=== PATIENT | female | born 1970 | race Caucasian/White ===

== ENCOUNTER 2020-04-16 11:33 | Outpatient (REF) | payer OTHER, SELFPAY ==
[2020-04-16 14:03] LABS: Free T4 (Free Thyroxine) 1.31 ng/dL (0.71-1.85); Thyroid Stimulating Hormone 0.14 uIU/mL (0.32-4.0)
== END 2020-04-16 11:34 | disposition home or self-care (01) ==
LOC: HO.MANLR 11:33
PROVIDERS: PCP Internal Medicine; Visit Provider Internal Medicine
DX: E03.9 Hypothyroidism, unspecified (principal)
CPT/HCPCS: 36415; 84439; 84443

== ENCOUNTER 2020-10-22 11:11 | Outpatient (REF) | payer OTHER, SELFPAY ==
[2020-10-22 13:37] LABS: Free T4 (Free Thyroxine) 1.52 ng/dL (0.71-1.85); Thyroid Stimulating Hormone 0.02 uIU/mL (0.32-4.0)
== END 2020-10-22 11:12 | disposition home or self-care (01) ==
LOC: HO.MANLDS 11:11
PROVIDERS: PCP Internal Medicine; Visit Provider Internal Medicine
DX: E03.9 Hypothyroidism, unspecified (principal)
CPT/HCPCS: 36415; 84439; 84443

== ENCOUNTER 2021-05-02 10:38 | Outpatient (REF) | payer OTHER, SELFPAY ==
[2021-05-02 14:09] LABS: Free T4 (Free Thyroxine) 1.38 ng/dL (0.71-1.85); Thyroid Stimulating Hormone 0.03 uIU/mL (0.32-4.0)
== END 2021-05-02 10:39 | disposition home or self-care (01) ==
LOC: HO.MANLDS 10:38
PROVIDERS: PCP Internal Medicine; Visit Provider Internal Medicine
DX: E03.9 Hypothyroidism, unspecified (principal)
CPT/HCPCS: 36415; 84439; 84443

== ENCOUNTER 2021-10-28 16:03 | Outpatient (REF) | payer OTHER, SELFPAY ==
[2021-10-28 18:58] LABS: Thyroid Stimulating Hormone 0.01 uIU/mL (0.32-4.0)
== END 2021-10-28 16:04 | disposition home or self-care (01) ==
LOC: HO.MANLDS 16:03
PROVIDERS: Visit Provider Internal Medicine
DX: E03.9 Hypothyroidism, unspecified (principal)
CPT/HCPCS: 36415; 84439; 84443

== ENCOUNTER 2022-04-25 09:54 | Outpatient (REF) | payer OTHER, SELFPAY ==
[2022-04-25 12:38] LABS: Free T4 (Free Thyroxine) 1.29 ng/dL (0.71-1.85); Thyroid Stimulating Hormone 0.11 uIU/mL (0.32-4.0)
== END 2022-04-25 09:55 | disposition home or self-care (01) ==
LOC: HO.MANLDS 09:54
PROVIDERS: Visit Provider Internal Medicine
DX: E03.9 Hypothyroidism, unspecified (principal)
CPT/HCPCS: 36415; 84439; 84443

== ENCOUNTER 2022-04-26 11:04 | Outpatient (REF) | payer OTHER, SELFPAY ==
[2022-04-26 12:47] LABS: MANUAL DIFF FLAG NO
[2022-04-26 12:48] LABS: Basophils Percent Auto 0.8 % (0-2); Eosinophils Absolute Auto 0.2 X10*3/uL (0.0-0.4); Eosinophils Percent Auto 4.4 % (0-4); Hematocrit 43.4 % (37.0-47.0); Hemoglobin 14.7 g/dl (12.0-16.0); Imm Gran Abs Auto 0.01 X10*3/uL (0.00-0.03); Imm Gran Pct Auto 0.2 % (0.0-0.4); Lymphocytes Absolute Auto 1.6 X10*3/uL (1.2-4.9); Lymphocytes Percent Auto 32.9 % (20-40); Mean Corpuscular HGB Conc 33.9 g/dl (31.0-35.0); Mean Corpuscular Volume 85.6 fL (80.0-98.0); Mean Platelet Volume 12.1 fL (9.4-12.3); Monocytes Absolute Auto 0.4 X10*3/uL (0.1-1.2); Monocytes Percent Auto 8.5 % (2-11); Neutrophils Absolute Auto 2.6 x10*3/uL (2.0-8.3); Neutrophils Percent Auto 53.2 % (45-73); Platelet Count 123 X10*3/uL (160-400); Red Blood Count 5.07 X10*6/uL (4.20-5.50); Red Cell Distribution Width 12.5 % (11.0-16.0)
[2022-04-26 13:47] LABS: Alanine Aminotransferase 31 U/L (0-31); Alkaline Phosphatase 69 U/L (39-117); Anion Gap 15 (12-20); Aspartate Amino Transferase 22 U/L (5-31); Bilirubin Total 1.3 mg/dL (0.0-1.0); Blood Urea Nitrogen 10 mg/dL (9-16); Carbon Dioxide 24 mmol/L (22-29); Chloride 108 mmol/L (96-108); Estimated Glomerular Filt Rate > 60; Glucose Random 96 mg/dL (60-115); Potassium 4.2 mmol/L (3.3-5.1); Sodium 143 mmol/L (135-145); Total Protein 6.7 g/dL (6.5-8.0)
[2022-04-28 01:40] LABS: Triiodothyronine T3 Free 3.8 pg/mL (2.3-4.2)
== END 2022-04-26 11:05 | disposition home or self-care (01) ==
LOC: HO.MANLDS 11:04
PROVIDERS: Visit Provider Internal Medicine
DX: E03.9 Hypothyroidism, unspecified (principal)
CPT/HCPCS: 36415; 80053; 84481; 85025

== ENCOUNTER 2022-10-23 10:42 | Outpatient (REF) | payer OTHER, SELFPAY ==
[2022-10-23 15:13] LABS: Thyroid Stimulating Hormone 0.06 uIU/mL (0.32-4.0)
== END 2022-10-23 10:43 | disposition home or self-care (01) ==
LOC: HO.MANLDS 10:42
PROVIDERS: Visit Provider Internal Medicine
DX: E03.9 Hypothyroidism, unspecified (principal)
CPT/HCPCS: 36415; 84443

== ENCOUNTER 2022-12-01 10:38 | Outpatient (REF) | payer OTHER, SELFPAY ==
[2022-12-01 13:55] LABS: TSH reflex Free T4 0.06 uIU/mL (0.32-4.0)
== END 2022-12-01 10:39 | disposition home or self-care (01) ==
LOC: HO.MANLDS 10:38
PROVIDERS: Visit Provider Internal Medicine
DX: E03.9 Hypothyroidism, unspecified (principal)
CPT/HCPCS: 36415; 84439; 84443

== ENCOUNTER 2023-04-20 11:10 | Outpatient (REF) | payer OTHER, SELFPAY ==
[2023-04-20 14:23] LABS: Free T4 (Free Thyroxine) 1.35 ng/dL (0.71-1.85); Thyroid Stimulating Hormone 0.25 uIU/mL (0.32-4.0)
== END 2023-04-20 11:11 | disposition home or self-care (01) ==
LOC: HO.MANLDS 11:10
PROVIDERS: Visit Provider Internal Medicine
DX: E03.9 Hypothyroidism, unspecified (principal)
CPT/HCPCS: 36415; 84439; 84443

== ENCOUNTER 2024-04-21 10:29 | Outpatient (REF) | payer OTHER, SELFPAY ==
[2024-04-21 13:17] LABS: Basophils Percent Auto 0.9 % (0-2); Eosinophils Absolute Auto 0.1 X10*3/uL (0.0-0.4); Eosinophils Percent Auto 3.1 % (0-4); Hematocrit 39.9 % (37.0-47.0); Hemoglobin 13.1 g/dl (12.0-16.0); Imm Gran Abs Auto 0.01 X10*3/uL (0.00-0.03); Imm Gran Pct Auto 0.2 % (0.0-0.4); Lymphocytes Absolute Auto 1.5 X10*3/uL (1.2-4.9); Lymphocytes Percent Auto 34.5 % (20-40); MANUAL DIFF FLAG SCAN; Mean Corpuscular HGB Conc 32.8 g/dl (31.0-35.0); Mean Corpuscular Hemoglobin 28.1 pg (27.0-33.0); Mean Corpuscular Volume 85.6 fL (80.0-98.0); Monocytes Absolute Auto 0.4 X10*3/uL (0.1-1.2); Monocytes Percent Auto 8.9 % (2-11); Neutrophils Absolute Auto 2.2 x10*3/uL (2.0-8.3); Neutrophils Percent Auto 52.4 % (45-73); PLT CLUMP 1; Red Blood Count 4.66 X10*6/uL (4.20-5.50); Red Cell Distribution Width 12.8 % (11.0-16.0); SCAN SMEAR FLAG 1
[2024-04-21 13:46] LABS: Alanine Aminotransferase 37 U/L (0-31); Albumin Level 3.8 g/dL (3.5-5.0); Alkaline Phosphatase 72 U/L (39-117); Anion Gap 11 (12-20); Aspartate Amino Transferase 29 U/L (5-31); Bilirubin Total 1.4 mg/dL (0.0-1.0); Blood Urea Nitrogen 8 mg/dL (9-16); Calcium 8.8 mg/dL (8.4-10.2); Carbon Dioxide 25 mmol/L (22-29); Chloride 110 mmol/L (96-108); Estimated Glomerular Filt Rate > 60; Glucose Random 92 mg/dL (60-115); Sodium 142 mmol/L (135-145); Total Protein 7.1 g/dL (6.5-8.0)
[2024-04-21 14:02] LABS: Mean Platelet Volume 12.5 fL (9.4-12.3); Platelet Count 116 X10*3/uL (160-400); White Blood Count 4.3 X10*3/uL (4.8-10.8)
[2024-04-21 14:03] LABS: SLIDE REVIEW VERIFIED
[2024-04-21 14:09] LABS: Thyroid Stimulating Hormone 0.37 uIU/mL (0.32-4.0)
[2024-04-25 08:03] LABS: VITAMIN D (1,25 OH) D3 43 pg/mL; Vit D (1,25-Dihydroxy) Total 43 pg/mL (18-72); Vitamin D (1,25 OH) D2 <8 pg/mL
== END 2024-04-21 10:30 | disposition home or self-care (01) ==
LOC: HO.MANLDS 10:29
PROVIDERS: Visit Provider Internal Medicine
DX: E03.9 Hypothyroidism, unspecified (principal)
CPT/HCPCS: 36415; 80053; 82652; 84443; 85025

== ENCOUNTER 2024-12-05 12:09 | Outpatient (REF) | payer OTHER, SELFPAY ==
--- OUTSIDE RECORDS SUMMARY | 2024-12-05 13:42 | XMS_ITS | Encounter Summary ---
Author Organization [facility] Address [address] [facility] [address] [place] [address] Phone Care Team Providers Care Business Account Manager Name Role Phone William Kwan DO Primary Care Provider [phone] Encounter Details Date Type Department Care Team (Late st Contact Info) Description 10/03/2019 Procedure [facility], Ct Scan - [address] [address] Social History Tobacco Use Types Packs/Day Years Used Date Smoking Tobacco: Never Smokeless Tobacco: Never Comments Unknown Sex and Gender Information Value Date Recorded Sex Assigned at Female 10/16/2022 1:39 AM EDT Legal Sex Female 9:36 PM EDT Gender Identity Female 10/16/2022 1:39 AM EDT Sexual Orientation Not on file documented as of this encounter Plan of Treatment Not on file documented as of this encounter Visit Diagnoses Not on filedocumented in this encounter Care Teams Business Account Manager Relationship Specialty Start Date End Date William Kwan DO [email or web address] PCP - General Internal Medicine 05/09/17 documented as of this encounter Additional Source Comments The information contained in this document represents components of the legal health record. It is not the complete legal health record.[facility]
--- OUTSIDE RECORDS SUMMARY | 2024-12-05 13:42 | XMS_ITS | Encounter Summary ---
Author Organization [facility] Address [address] [address] Phone Care Team Providers Care Commercial Drone Software Developer Name Role Phone William Kwan DO Primary Care Provider [phone] Encounter Details Date Type Department Care Team (Late st Contact Info) Description 05/04/2017 Ancillary Orders [facility] External Provider Virtual Department [address] [place] [address] William Kwan DO [address] [facility] [place] [address] [email or web address] WADE (dyspnea on exertion); Other chest pain Social History Tobacco Use Types Packs/Day Years Used Date Smoking Tobacco: Never Assessed Comments Unknown Sex and Gender Information Value Date Recorded Sex Assigned at Female 10/16/2022 1:39 AM EDT Legal Sex Female 9:36 PM EDT Gender Identity Female 10/16/2022 1:39 AM EDT Sexual Orientation Not on file documented as of this encounter Plan of Treatment Not on file documented as of this encounter Results * Stress Test Exercise (05/24/2017 9:19 AM EDT) Max BP Systolic 140 mmHg [facility] Max BP Diastolic 70 mmHg [facility] Max HR 150 BPM [facility] Resting HR 81 BPM [facility] Resting BP Systolic 115 mmHg [facility] Resting BP Diastolic 60 mmHg [facility] Peak METS 10.1 METS [facility] Peak HR 150 BPM [facility] Anatomical Region Laterality Modality Heart Other 05/24/2017 8:41 AM EDT 05/24/2017 9:19 AM EDT Narrative 05/24/2017 8:39 PM EDT Response to Stress Patient achieved a peak heart rate of 150 bpm, which is% of their maximum predicted heart rate. Exercise Stress Test Report: Reason for termination: fatigue Summary: Resting ECG: SR HR 99 Functional capacity: good Heart rate response to exercise: appropriate Blood pressure response to exercise: normotensive - appropriate response Chest pain: none Arrhythmias: none Conclusion: Patient exercised for 8:06 minutes on a standard Raf protocol achieving 87% MPHR (150 BPM) and 10.10 METS. Test terminated due to fatigue. Summary: 1. EKG: No EKG evidence of ischemia per criteria 2. Symptoms: No exertional chest pain or symptoms concerning for angina. 3. Exercise physiology: Normal heart rate and BP response to exercise. Max HR 150 BPM with normal HR recovery. Max BP 140/70 from baseline BP of 115/60. 02 sat 95-97% and stable throughout the procedure. Good functional capacity for age noted. 4. Arrhythmia: None Conclusion: Normal ETT. No ischemic EKG changes. Vital signs at baseline at time of discharge from the lab. EKG reviewed with Dr. Stewart. Cinthia Reid, PERMASTONE INSTALLER, MPH . us William Kwan DO CV STRESS ORDERABLES Final Resul t documented in this encounter Visit Diagnoses Diagnosis WADE (dyspnea on exertion) Other dyspnea and respiratory abnormality Other chest pain WADE (dyspnea on exertion) Other dyspnea and respiratory abnormality Other chest pain documented in this encounter Care Teams Commercial Drone Software Developer Relationship Specialty Start Date End Date William Kwan DO [email or web address] PCP - General Internal Medicine 05/09/17 documented as of this encounter Additional Source Comments The information contained in this document represents components of the legal health record. It is not the complete legal health record.[facility]
--- OUTSIDE RECORDS SUMMARY | 2024-12-05 13:42 | XMS_ITS | Clinical Summary ---
Author Organization [facility] Address [address] [place] [address] Phone Care Team Providers Care Regional Medical Director Name Role Phone William Kwan Primary Care Provider [phone] Allergies Active Allergy Reactions Criticality Noted Date Comments Animal Dander Other (See Comments) High 09/20/2019 Cat Dander Wheezing 05/02/2005 Dog Dander Wheezing 05/02/2005 Erythromycin Base 09/20/2019 Pollen Extracts 08/18/2010 And other environmental Medications albuterol 90 mcg/actuation inhaler albuterol sulfate HFA 90 mcg/actuation aerosol inhaler Active levothyroxine (SYNTHROID, LEVOTHROID) 125 MCG tablet Synthroid 125 mcg tablet TAKE ONE TABLET BY MOUTH EVERY DAY Active ALBUTEROL INHL Inhale into the lungs. Active betamethasone dipropionate 0.05 % cream APPLY A THIN LAYER TO THE AFFECTED AREA(S) BY TOPICAL ROUTE ONCE DAILY Active carBAMazepine (TEGRETOL) 200 mg tablet Take 1 tablet (200 mg total) by mouth 2 (two) times a day for 14 days. 28 tablet 3 Active Active Problems No known active problems Family History Medical History Relation Comments Breast cancer Mother dx fall and is cancer free as of 03/2021 Relation Status Comments Mother Social History Tobacco Use Types Packs/Day Years Used Date Smoking Tobacco: Never Smokeless Tobacco: Never Tobacco Cessation:Counseling Given: Not Answered Alcohol Use Standard Drinks/Week Comments Yes 1 (1 standard drink = 0.6 oz pur e alcohol) Education Answer Date Recorded Are you interested in more education? Not on aminta e 06/02/2022 Are you concerned about learning? Not on file 06/02/2022 No 06/02/2022 No 06/02/2022 Digital Access Answer Date Recorded No 07/01/2022 No 07/01/2022 Reliable internet access at home? Not on file 07/01/2022 Device with a working camera? Not on file Intimate Partner Violence Answer Date R ecorded Are you denied basic needs s uch as food, clothing, or medical care? No 10/16/2022 In the past 12 months have y ou been in a relationship with a person who hurts, threatens, or tries to control you? No 10/16/2022 Are you denied basic needs s uch as food, clothing, or medical care? No 10/16/2022 In the past 12 months have y ou been in a relationship with a person who hurts, threatens, or tries to control you? No 10/16/2022 Comments No Sex and Gender Information Value Date Recorded Sex Assigned at Female 10/16/2022 1:39 AM EDT Legal Sex Female 9:36 PM EDT Gender Identity Female 10/16/2022 1:39 AM EDT Sexual Orientation Not on file Last Filed Vital Signs Vital Sign Reading Time Taken Comments Blood Pressure 185/96 10/16/2022 1:38 AM EDT Pulse 80 10/16/2022 1:38 AM EDT Temperature 36.8 C (98.2 F) 10/16/2022 1:38 AM EDT Respiratory Rate 18 10/16/2022 1:38 AM EDT Oxygen Saturation 99% 10/16/2022 1:38 AM EDT Inhaled Oxygen Concentration - - Weight 69.9 kg (154 lb) 10/16/2022 1:38 AM EDT Height 160 cm (5' 3 ) 10/16/2022 1:38 AM EDT Body Mass Index 27.28 10/16/2022 1:38 AM EDT Plan of Treatment Health Maintenance Due Date Last Done Comments LIPID PANEL 1968 DEPRESSION SCREENING 1980 HEPATITIS C SCREENING 1986 HIV ONE-TIME SCREENING (18-65 YEARS) 1986 PAP SMEAR 1989 COLOGUARD 2013 COLONOSCOPY 2013 COLORECTAL CANCER SCREENING 2013 FIT TEST 2013 FOBT 2013 SIGMOIDOSCOPY 2013 VIRTUAL COLONOSCOPY 2013 PNEUMOCOCCAL VACCINES (50+ years) (1 of 1 - PCV) 2018 ZOSTER VACCINES (1 of 2) 2018 MAMMOGRAM 12/23/2021 12/24/2019 SCREENING FOR DIABETES 06/30/2023 06/29/2020 INFLUENZA VACCINE (#1) 2024 2, 11/16/2020, 10/21/2019, Additional history exists COVID-19 VACCINE (4 - 2024- season) 2024 02/28/2021, 06/20/2020, 05/30/2020 TSH LEVEL 10/18/2024 10/19/2023 Adult Td,Tdap Booster 10/29/2029 10/30/2019 RSV VACCINE (1 - 1-dose 75+ series) 08/14/2043 SMOKING STATUS SCREENING (Once After 26 Yrs) Completed 10/16/2022 HEPATITIS A VACCINES Aged Out No long er eligible based on patient's age to complete this topic HIB VACCINES Aged Out No longer eligi ble based on patient's age to complete this topic MENINGOCOCCAL VACCINES (ACWY) Aged Out No longer eligible based on patient's age to complete this topic MENINGOCOCCAL VACCINES (B) Aged Out N o longer eligible based on patient's age to complete this topic Medical Devices Not on file Procedures Procedure Name Priority Date/Time Associated Diagnosis Comments TSH WITH REFLEX Routine 10/19/2023 10:43 AM EDT 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 Months or Most Recently Relevant to Health Maintenance Results * TSH with reflex (10/19/2023 10:43 AM EDT) TSH 0.68 0.27 - 4.20 uIU/mL [facility] Blood 10/19/2023 10:4 3 AM EDT 10/19/2023 10:46 AM EDT us William A Bigda DO LAB BLOOD ORDERABLES Final Resul t [address] [address] from Last 3 Months or Most Recently Relevant to Health Maintenance Insurance [facility] CIGNA DENTAL [facility] [place] [facility] Member Subscriber Plan / Payer (Ef fective 2020-Present) Name:Vonnie Stark Relation to Subscriber:Spouse Name:GORDY STARK Date of :1967 (Home) Address: [address] [place] [address] Payer ID:[id number] (NAIC) Type:PPO Address: [address] [id number] [place] [id number] Care Teams Regional Medical Director Relationship Specialty Start Date End Date William Kwan DO [email or web address] PCP - General Internal Medicine 05/09/17 Additional Source Comments The information contained in this document represents components of the legal health record. It is not the complete legal health record.[facility]
--- OUTSIDE RECORDS SUMMARY | 2024-12-05 13:42 | XMS_ITS | Data Portability ---
Author Organization [facility], Telehealth Patient Home Address [address] [place] [address] Assessment Encounter Date Assessment Date Assessment LastModified by Organization Details LastModified Time 04/30/2023 04/30/2023 [id number] [place] [id number] (DOWNSTAIRS MAID) [facility] MODERATE MUST MEET 2 OUT OF 3 ELEMENTS: PROBLEMS, DATA OR RISK ELEMENT 1: PROBLEMS ADDRESSED 1 OR MORE CHRONIC ILLNESS WITH EXACERBATION OR 2 OR MORE STABLE CHRONIC ILLNESSES OR 1 UNDIAGNOSED NEW PROBLEM OR 1 ACUTE ILLNESS W/SYMPTOMS OR 1 ACUTE COMPLICATED INJURY ELEMENT 2: DATA MUST MEET 1 OF 3 CATEGORIES CATEGORY 1: REVIEW OF PRIOR EXTERNAL NOTES, REVIEW OF RESULTS, ORDERING OF EACH TEST, ASSESSMENT REQUIRING INDEPENDENT HISTORIAN OR CATEGORY 2: INDEPENDENT INTERPRETATION OF TESTS BY ANOTHER PHYSICIAN OR SPECIALIST OR CATEGORY 3: DISCUSSION OF MGT OR TEST INTERPRETATION W/EXTERNAL PHYSICIAN OR SPECIALIST ELEMENT 3: RISK RISK OF COMPLICATIONS AND/OR MORBIDITY OR MORTALITY OF PATIENT MANAGEMENT PROVIDER MUST THOROUGHLY DOCUMENT EACH ELEMENT THAT IS COVERED Not available 04/30/2023 10:29:19 10/19/2023 10/19/2023 [id number] [place] [id number] (DOWNSTAIRS MAID) [facility] MODERATE MUST MEET 2 OUT OF 3 ELEMENTS: PROBLEMS, DATA OR RISK ELEMENT 1: PROBLEMS ADDRESSED 1 OR MORE CHRONIC ILLNESS WITH EXACERBATION OR 2 OR MORE STABLE CHRONIC ILLNESSES OR 1 UNDIAGNOSED NEW PROBLEM OR 1 ACUTE ILLNESS W/SYMPTOMS OR 1 ACUTE COMPLICATED INJURY ELEMENT 2: DATA MUST MEET 1 OF 3 CATEGORIES CATEGORY 1: REVIEW OF PRIOR EXTERNAL NOTES, REVIEW OF RESULTS, ORDERING OF EACH TEST, ASSESSMENT REQUIRING INDEPENDENT HISTORIAN OR CATEGORY 2: INDEPENDENT INTERPRETATION OF TESTS BY ANOTHER PHYSICIAN OR SPECIALIST OR CATEGORY 3: DISCUSSION OF MGT OR TEST INTERPRETATION W/EXTERNAL PHYSICIAN OR SPECIALIST ELEMENT 3: RISK RISK OF COMPLICATIONS AND/OR MORBIDITY OR MORTALITY OF PATIENT MANAGEMENT PROVIDER MUST THOROUGHLY DOCUMENT EACH ELEMENT THAT IS COVERED Not available 10/19/2023 09:55:44 04/21/2024 04/21/2024 [id number] [place] [id number] (DOWNSTAIRS MAID) [facility] MODERATE MUST MEET 2 OUT OF 3 ELEMENTS: PROBLEMS, DATA OR RISK ELEMENT 1: PROBLEMS ADDRESSED 1 OR MORE CHRONIC ILLNESS WITH EXACERBATION OR 2 OR MORE STABLE CHRONIC ILLNESSES OR 1 UNDIAGNOSED NEW PROBLEM OR 1 ACUTE ILLNESS W/SYMPTOMS OR 1 ACUTE COMPLICATED INJURY ELEMENT 2: DATA MUST MEET 1 OF 3 CATEGORIES CATEGORY 1: REVIEW OF PRIOR EXTERNAL NOTES, REVIEW OF RESULTS, ORDERING OF EACH TEST, ASSESSMENT REQUIRING INDEPENDENT HISTORIAN OR CATEGORY 2: INDEPENDENT INTERPRETATION OF TESTS BY ANOTHER PHYSICIAN OR SPECIALIST OR CATEGORY 3: DISCUSSION OF MGT OR TEST INTERPRETATION W/EXTERNAL PHYSICIAN OR SPECIALIST ELEMENT 3: RISK RISK OF COMPLICATIONS AND/OR MORBIDITY OR MORTALITY OF PATIENT MANAGEMENT PROVIDER MUST THOROUGHLY DOCUMENT EACH ELEMENT THAT IS COVERED Not available 04/21/2024 10:16:37 11/03/2024 11/03/2024 [id number] [place] [id number] (DOWNSTAIRS MAID) [facility] MODERATE MUST MEET 2 OUT OF 3 ELEMENTS: PROBLEMS, DATA OR RISK ELEMENT 1: PROBLEMS ADDRESSED 1 OR MORE CHRONIC ILLNESS WITH EXACERBATION OR 2 OR MORE STABLE CHRONIC ILLNESSES OR 1 UNDIAGNOSED NEW PROBLEM OR 1 ACUTE ILLNESS W/SYMPTOMS OR 1 ACUTE COMPLICATED INJURY ELEMENT 2: DATA MUST MEET 1 OF 3 CATEGORIES CATEGORY 1: REVIEW OF PRIOR EXTERNAL NOTES, REVIEW OF RESULTS, ORDERING OF EACH TEST, ASSESSMENT REQUIRING INDEPENDENT HISTORIAN OR CATEGORY 2: INDEPENDENT INTERPRETATION OF TESTS BY ANOTHER PHYSICIAN OR SPECIALIST OR CATEGORY 3: DISCUSSION OF MGT OR TEST INTERPRETATION W/EXTERNAL PHYSICIAN OR SPECIALIST ELEMENT 3: RISK RISK OF COMPLICATIONS AND/OR MORBIDITY OR MORTALITY OF PATIENT MANAGEMENT PROVIDER MUST THOROUGHLY DOCUMENT EACH ELEMENT THAT IS COVERED Not available 11/03/2024 10:15:49 Plan of Treatment Reminders Order Date Submit Date Provider Last Modified By Organization Details Last Modified Time Details Appointments FOLLOW UP 15 2025 10:00A M DR FOSTER Not available Not available Not available Lab TSH + free T4, serum 2024 025 [facility], [address] [place] [address], [id number], 11/03/2024 10:31:14 CMP, serum or plasma 2024 025 [facility], [address] [place] [address], [address], 11/03/2024 10:31:14 TSH, serum or plasma 2024 025 [facility], [address] [place] [address], [address], 04/22/2024 12:33:09 CMP, serum or plasma 2024 025 [facility], [address] [place] [address], [address], 04/22/2024 12:33:08 CBC 2024 025 [facility], [address] [place] [address], [address], 04/22/2024 12:33:09 vitamin D, 25-hydrox y, total, serum 2024 025 [facility], [address] [place] [address], [address], 04/25/2024 12:19:27 TSH + free T4, serum 2023 024 [facility], [place], [address], 10/19/2023 19:13:55 Referral None recorded. Procedures None recorded. Surgeries None recorded. Imaging XR, hip + pelvis, unilatera l, 2 or 3 view 2022 023 [facility], [address], [place], [address], 12/18/2022 08:37:45 Medication Orders clotrimaz ole-betam ethasone 1 %-0.05 % topical cream 2023 024 [facility], [address] [place], [address], 10/19/2023 10:01:57 trazodone 150 mg tablet 2023 024 [facility], [address] [place], [address], 04/30/2023 10:30:24 trazodone 50 mg tablet 2022 023 [facility], [address] [place], [address], 12/01/2022 15:51:38 Patient TargetsNo targets recorded. Patient Instructions Encounter Date Encounter Id Patient Instructions Last Modified By Organization Details Last Modified Time 12/01/2022 [id number] pulse oximetry* Not available 12/01/2022 15:51:38 insomnia: care instructions Not available 12/01/2022 15:51:35 04/30/2023 [id number] insomnia: care instructions Not available 04/30/2023 10:30:21 complete PFT w/ post bronchodilator spirometry* - pt with probable long covid hrubner Not available 05/07/2023 08:31:03 10/19/2023 [id number] learning about asthma Not available 10/19/2023 10:01:55 athlete's foot: care instructions Not available 10/19/2023 10:01:55 hypothyroidism: care instructions Not available 10/19/2023 10:01:55 04/21/2024 [id number] sleep apnea: car e instructions Not available 04/21/2024 10:22:42 pulse oximetry* BESS[facility] Not available 04/21/2024 10:24:19 hypothyroidism: care instructions Not available 04/21/2024 10:22:42 11/03/2024 [id number] pulse oximetry* Not available 11/03/2024 10:23:23 hypothyroidism: care instructions Not available 11/03/2024 10:23:23 Reason for Referral None Reported. Results Created Date Observation Date Name Description Value Unit Range Abnormal Flag Note LastModifiedBy Organization Detail LastModifiedTime 12/02/1912/01/2022 pulse oxime try* Result 96% Not Available [facility] [address], [place], [address], 11/29/2022 15:09:39 04/22/19 25 04/21/2024 pulse oxime try* Result 97% Not Available [facility] [address], [place], [address], 04/18/2024 13:42:56 11/04/19 25 11/03/2024 pulse oxime try* Result 97 Not Available [facility] [address], [place], [address], 10/15/2024 14:29:12 01/19/20 23 01/16/2023 XR, hip + pelvi s, unila teral , 2 or 3 view No observ ation record ed. [email or web address] [address], [address], 02/02/2023 13:52:50 01/23/20 23 01/22/2023 MAMMO , scree mildred, digit al, bilat eral No observ ation record ed. [email or web address] Not Available 2022 14:08:11 01/24/20 23 01/22/2023 MAMMO , scree mildred, digit al, bilat eral No observ ation record ed. [facility] ([facility]) [address] [place], [address], 01/23/2023 08:34:13 03/19/19 24 03/19/2023 XR, chest , 2 view No observ ation record ed. [email or web address] [address], [address], 03/19/2023 16:39:48 02/07/19 25 01/28/2024 home sleep study No observ ation record ed. [place] [id number] [place], [address], 02/11/2024 08:42:58 Result Notes None recorded. Problems Name Problem SNOMED Code Status Onset Date Resolution Date Notes Provider Name and Address Organization Details Recorded Time Asthma 608749534 Active 2017 William Richardson Thanharmond, DO [address] [place] [address], [address], [facility] 5 10:20:19 Allergic rhinitis caused by pollen 60539141 Active 2017 Needs airline note for severe animal allergy Georgia vicente [facility] 5 13:42:44 Goiter 1403186 Active 2017 Georgia vicente [facility] 5 13:42:28 Hypothyr oidism 81707460 Active 2017 William Richardson Aquiles, DO [address] [place] [address], [address], 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 Georgia vicente [facility] 5 13:42:44 Allergic conjunct ivitis of bilatera l eyes 5820137872 77462 Active 2022 Georgia vicente [facility] 5 13:42:28 Pain of left hip joint 8599332403 Active 2022 Georgia vicente [facility] 5 13:42:28 Dyspnea 255848057 Active 2023 Georgia vicente [facility] 5 13:42:44 Acute exacerba tion of chronic obstruct mark pulmonar y disease 024631473 Completed 202311/03/2024 William Foster, [address] [place], [address], [facility] 5 10:17:14 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 Please review these documents and add these problems to the patient's chart manually as needed. Problem Notes None recorded. Medical Equipment None Reported. Allergies Allergen ID Allergen Name Allergen Category Reaction Reaction Severity Criticality Documentation Date Start Date Code Code System Note Provider Name and Address Organization Details Recorded Time 2326 animal dander environme nt other severe Not available 10/30/2017 Jaz Estevez [facility] 8 08:17:52 98 erythromy flor medicatio n Not available Not available Not available 04/06/2017 4053 RxNorm GI upset Negar Igel [facility] 8 10:24:09 Medications Name Sig Start Date Stop Date Status Note LastModified by Organization Details LastModified Time Prescriptio n - Prior Authorizati on Request 10/24 completed Not Available Not Available Not Available prednisone 10 mg tablet 40 mg x 2 days30 mg x 2 days20 mg x 2 days10 mg x 2 days 04/29 completed Not Available Not Available Not Available trazodone 50 mg tablet TAKE ONE TABLET BY MOUTH EVERY DAY active Not Available Not Available No t Available azithromyci n 250 mg tablet 04/29 completed Not Available Not Available Not Available hydrocodone 5 mg-acetamin ophen 325 mg tablet TAKE 1 TABLET BY MOUTH EVERY 6 HOURS FOR 7 DAYS 05/03 completed Not Available Not Available Not Available carbamazepi ne ER 100 mg tablet,exte nded release,12 hr 10/30 completed Not Available Not Available Not Available Synthroid 125 mcg tablet TAKE ONE TABLET BY MOUTH EVERY DAY 2024 active Not Available Not Available Not Avai lable ciprofloxac in 250 mg tablet 09/30 completed Not Available Not Available Not Available liothyronin e 5 mcg tablet TAKE ONE TABLET BY MOUTH EVERY DAY 04/26 completed Not Available Not Available Not Available triamcinolo ne acetonide 0.1 % topical cream active Not Available Not Available Not Available amoxicillin 500 mg tablet 04/29 completed Not Available Not Available Not Available carbamazepi ne 200 mg tablet Take 1 tablet every 12 hours by oral route for 14 days. 10/23 completed Not Available Not Available Not Available trazodone 150 mg tablet TAKE ONE TABLET BY MOUTH EVERY DAY AT BEDTIME 2024 active Not Available Not Available Not Avai lable clotrimazol e-betametha sone 1 %-0.05 % topical cream APPLY TO THE AFFECTED AND SURROUNDI NG AREAS OF SKIN BY TOPICAL ROUTE 2 TIMES PER DAY IN THE MORNING AND EVENING FOR 2 WEEKS active Not Available Not Available No t Available carbamazepi ne 100 mg chewable tablet 10/30 completed Not Available Not Available Not Available betamethaso ne dipropionat e 0.05 % topical cream APPLY A THIN LAYER TO THE AFFECTED AREA(S) BY TOPICAL ROUTE ONCE DAILY active Not Available Not Available No t Available Synthroid 112 mcg tablet 10/30 completed Not Available Not Available Not Available methylpredn isolone 4 mg tablets in a dose pack 10/30 completed Not Available Not Available Not Available albuterol sulfate HFA 90 mcg/actuati on aerosol inhaler Inhale 2 puffs every 4 hours by inhalatio n route for 30 days. active Not Available Not Available No t Available fluticasone propionate 50 mcg/actuati on nasal spray,suspe nsion 10/30 completed Not Available Not Available Not Available amoxicillin 875 mg-potassiu m clavulanate 125 mg tablet 04/29 completed Not Available Not Available Not Available amoxicillin 500 mg-potassiu m clavulanate 125 mg tablet 10/30 completed Not Available Not Available Not Available oxycodone 5 mg tablet TAKE 1 TABLET BY MOUTH EVERY 4 HOURS NEEDED FOR PAIN 10/23 completed Not Available Not Available Not Available Synthroid 10/24 completed Not Available Not Available Not Available budesonide- formoterol HFA 160 mcg-4.5 mcg/actuati on aerosol inhaler active Not Available Not Available Not Available budesonide- formoterol HFA 80 mcg-4.5 mcg/actuati on aerosol inhaler Inhale 2 puffs twice a day by inhalatio n route as directed for 30 days. 11/03 completed Not Available Not Available Not Available Anoro Ellipta 62.5 mcg-25 mcg/actuati on powder for inhalation 11/03 completed Not Available Not Available Not Available Spiriva Respimat 1.25 mcg/actuati on solution for inhalation active Not Available Not Available N ot Available Vitals Date Recorded Body height Body mass index (BMI) Body weight Heart rate Oxygen saturation Oxygen saturation in Arterial blood by Pulse oximetry Systolic And Diastolic Provider Name and Address Organization Details Last Updated DateTime 5 161.93 cm 30.7 kg/m2 01087.9 3 g 66 /min 97 % 97 % 122/82 mm[Hg] [facility] Cee [facility] 5 10:02:51 Date Recorded Body height Body mass index (BMI) Body weight Heart rate Oxygen saturation Oxygen saturation in Arterial blood by Pulse oximetry Systolic And Diastolic Provider Name and Address Organization Details Last Updated DateTime 4 161.93 cm 30.4 kg/m2 95161.1 8 g 98 /min 99 % 99 % 132/82 mm[Hg] [facility] Cee [facility] 4 10:07:01 Date Recorded Body height Body mass index (BMI) Body weight Heart rate Oxygen saturation Oxygen saturation in Arterial blood by Pulse oximetry Systolic And Diastolic Provider Name and Address Organization Details Last Updated DateTime 4 161.93 cm 29.2 kg/m2 60016.1 1 g 90 /min 98 % 98 % 108/64 mm[Hg] Lindseymargarita Machadomond [facility] 4 09:52:26 Date Recorded Body height Body mass index (BMI) Body weight Oxygen saturation Oxygen saturation in Arterial blood by Pulse oximetry Heart rate Systolic And Diastolic Provider Name and Address Organization Details Last Updated DateTime 5 161.93 cm 30.7 kg/m2 18066 g 97 % 97 % 66 /min 108/72 mm[Hg] Alice Radford [facility] 5 10:04:42 Date Recorded Body height Body mass index (BMI) Body weight Heart rate Oxygen saturation Oxygen saturation in Arterial blood by Pulse oximetry Systolic And Diastolic Provider Name and Address Organization Details Last Updated DateTime 3 161.93 cm 30.3 kg/m2 89646.6 6 g 86 /min 96 % 96 % 120/68 mm[Hg] Lindseymargarita Machadomond [facility] 3 15:24:06 Social History Question Answer Notes LastModified by [employer] Details LastModified Time Tobacco Smoking Status Never Smoker Not Available [facility] 12/09/2019 03:36:24 What Was The Date Of Your Most Recent Tobacco Screening? 11/03/2024 [email or web address] Information not available 11/03/2024 Sex: Unknown Functional Status Question Answer Note LastModified by [employer] Details LastModified Time Do you use any illicit or recreational drugs? No [email or web address] Information not available 12/01/2022 Do you or have you ever used any other forms of tobacco or nicotine? No Information not available 04/26/2022 Mental Status None recorded. Family History Nothing Reported. Medical History No medical history recorded. Gynecological HistoryNo gynecological history recorded. Obstetrics History GPAL:G 0 P 0 0 0 0 Immunizations Vaccine Type Date Status Note Provider Nam e and Address Organization Details Recorded Time COVID-19, mRNA, LNP-S, PF, 30 mcg/0.3 mL dose 1 completed Not Available [facility] 10/16/2022 08:49:45 COVID-19, mRNA, LNP-S, PF, 30 mcg/0.3 mL dose 1 completed Not Available [facility] 10/16/2022 08:49:45 influenza, unspecified formulation 2 completed Not Available [facility] 10/16/2022 08:49:45 Influenza, split virus, quadrivalent, preservative 9 completed Not Available [facility] 10/16/2022 08:49:45 Tdap 0 completed Not Available [facility] 10/16/2022 08:49:45 Past Encounters Encounter ID Performer Location Encounter Start Date Encounter Closed Date Diagnosis/Indication Diagnosis SNOMED-CT Code Diagnosis ICD10 Code Diagnosis IMO Codes Diagnosis Note [id number] William Foster [facility] [address] [address] 10/30/2017 09:29:35 10/30/2017 10:42:59 Hypothyroidism 98959456 E03.9 will get lab work today tsh t4 Asthma 778388517 J45.90 9 stable this year did well no major prob Pain in thumb 390166349 M79.645 will let me know if this discomfort worsens and i will then have her get xrays and see sSpath [id number] William Foster [facility] [address] [address] 03/18/2018 10:24:27 03/18/2018 11:07:02 Hypothyroidism 53514895 E03.9 will get lab work today tsh t4 Insomnia 579529534 G47.0 0 discussed at length and i agree she needs to sleep a certain amount of time nightly Asthma 911020279 J45.90 9 stable this year did well no major prob [id number] William Foster [facility] [address] [facility] [address] [address] 09/25/2018 08:58:29 09/25/2018 11:47:32 Asthma 526172402 J45.909 stable this year did well no major prob Hypothyroidism 04649059 E03.9 lab done was ok will get lab work next vist tsh t4 Insomnia 247851839 G47.0 0 discussed at length and i agree she needs to sleep a certain amount of time nightly Dysplastic nevus of skin 126888946 D22.9 will refer to derm needs removal [id number] William Foster [facility] [address] [facility] [address] [facility] [place] [address] 03/28/2019 14:08:42 03/28/2019 16:35:41 Hypothyroidism 68981850 E03.9 TSH was low at 0.2 has historical ly been low in the past Asthma 505828955 J45.90 9 stable this year did well no major problem only uses the albuterol rescue inhaler ~once a year Insomnia 728852062 G47.0 0 stable, not having any issues Adult heal examination 898976025 Z00.00 hasn't had cmp or cbc done for two years not interested in having a traditiona l colonoscop y Localized visual field defect 942730673 H53.459 [id number] William Foster [facility] [address] [facility] [address] [employer] [facility] [place] [address] 10/01/2019 09:31:21 10/01/2019 10:06:42 Asthma 991312550 J45.909 stable this year did well no major problem only uses the albuterol rescue inhaler ~once a year Hypothyroidism 85938543 E03.9 TSH was low at 0.2 has historical ly been low in the past Acute hemo rrhagic cystitis 57103813 N30.01 treated by ADRIENNE avila but not sure if we had culture done pt will find out Dental abscess 733219825 K04.7 is possible this is brewing but she is not in extreme pain like she was in 2017 we will pre empt this and give her Left trige beth neuralgia 1310146120 1193215 G50.0 [id number] [facility] [address] [facility] [address] [facility] [place] [address] 04/20/2020 11:35:30 04/20/2020 12:17:48 Asthma 247168498 J45.909 stable this year did well no major problem only uses the albuterol rescue inhaler ~once a year Hypothyroidism 67004487 E03.9 TSH was low at 0.2 but cont to do well clinically with this dose so no change has historical ly been low in the past Diverticul osis of colon 096346084 K57.30 we are going to treat when she is symptomati c pt understand s when to heron Cholelithi asis without obstruction 65806840 K80.20 will need to send to surgeon if she becomes symptomati c pt understand s symptom complex Menorrhagia 993417740 N9 2.0 [id number] William Foster [facility] [address] [address] 10/27/2020 08:31:27 10/27/2020 11:50:27 Hypothyroidism 03748722 E03.9 TSH was low at 0.2 but cont to do well clinically with this dose so no change has historical ly been low in the past Asthma 712484260 J45.90 9 stable this year did well no major problem only uses the albuterol rescue inhaler ~once a year [id number] William Foster [facility] [address] [facility] [address] 05/03/2021 15:14:36 05/03/2021 16:00:32 Asthma 916289516 J45.909 stable this year did well no major problem only uses the albuterol rescue inhaler ~once a year Hypothyroidism 43161084 E03.9 TSH was low at 0.2 but cont to be very fatigued and is not in a ideal place in her energy levelwe will try a low dose T3 added to her synthoidwi ll call me in a few weeks with update onwhether to cont or increase or stop Insomnia G47.0 0 stable, not having any issues [id number] William Foster [facility] [address] [facility] [address] 11/02/2021 10:13:43 11/02/2021 11:25:31 Asthma 095923555 J45.909 stable this year did well no major problem only uses the albuterol rescue inhaler ~once a year Insomnia 120525610 G47.0 0 stable, not having any issues Perimenopa usal disorder 752999751 N95.9 is clearly not feeling well Hypothyroidism 68993954 E03.9 TSH was low at 0.2 but cont to be very fatigued and is not in a ideal place in her energy levelwi call me in a few weeks with update on whether to cont or increase or stopwe will stop the T3 [id number] William Debra Aquiles [facility] [address],[place] [address] 04/26/2022 10:12:34 04/26/2022 11:32:35 Hypothyroidism 26874888 E03.9 TSH was low at 0.2 but cont to be very fatigued and is not in a ideal place in her energy levelwill call me in a few weeks with update on whether to cont or increase or stopwe will stop the T3 Asthma 599123681 J45.90 9 stable this year did well no major problem only uses the albuterol rescue inhaler ~once a year Screening for malignant neoplasm of colon 566710047 Z12.11 Sleep disorder 13474728 G47.9 [id number] William Foster [facility] [address],[place] [address] 10/23/2022 09:56:58 10/23/2022 11:55:07 Asthma 916815403 J45.909 stable this year did well no major problem only uses the albuterol rescue inhaler ~once a year Hypothyroidism 84612100 E03.9 pt will be trialed on levothyrox ine if not tolerated we will try to get her to get her old RX back will see pt in 2 mo Insomnia 435071913 G47.0 0 states she has a watch that tracks her sleep states she is constantly waking uptold her to try taking valerian root Allergic conjunctivitis of bilateral eyes [id number] 59640 H10.13 trial of otc and new pillow [id number] William Foster [facility] Internal Medicine [address] [facility], [place] [address] 12/01/2022 15:14:24 12/01/2022 16:14:16 Asthma 734523788 J45.909 stable this year did well no major problem only uses the albuterol rescue inhaler ~once a year Hypothyroidism 95015736 E03.9 didnt get lab yet await result Insomnia 568054725 G47.0 0 states she has a watch that tracks her sleep states she is constantly waking uptold her to try taking valerian root Pain of le ft hip joint [id number] 41690 M25.552 [id number] William Foster [facility] Internal Medicine [address] [facility] [address] [address] 04/30/2023 10:00:17 04/30/2023 10:46:42 Acute exacerbation of chronic obstructive pulmonary disease 014304532 J44.1 asthma assessment / pap test Hypothyroidism 91387744 E03.9 tsh t4 stable Insomnia 788058287 G47.0 0 states she has a watch that tracks her sleep states she is constantly waking uptold her to try taking valerian root Chronic po st-COVID-19 syndrome 7001155347 U09.9 [id number] William Foster [facility] Internal Medicine [address] [facility],[employer] [place] [address] 10/19/2023 09:46:31 10/19/2023 10:07:22 Acute exacerbation of chronic obstructive pulmonary disease 836819243 J44.1 asthma assessment / pap test Asthma 758271044 J45.40 stable this year did well no major problem using the generic symbicort only uses the albuterol rescue inhaler ~once a year Hypothyroidism 39290129 E03.9 tsh t4 stable Tinea pedis 9467337 B35. 3 [id number] William Foster [facility] Internal Medicine [address] [facility] [place] [facility] [address] 04/21/2024 09:55:32 04/21/2024 10:34:50 Asthma 403646267 J45.40 stable this year did well no major problem using the generic symbicort only uses the albuterol rescue inhaler ~once a year Depression screening 171 052952 Z13.31 neg Hypothyroidism 69822567 E03.9 tsh t4 stable Sleep apnea 87832577 G47 .30 now doing really well tolerates cpap with full mask feels markedly better [id number] William Foster [facility] Internal Medicine [address] [facility] [address] [address] 11/03/2024 09:53:13 11/03/2024 12:35:51 Depression screening 491916918 Z13.31 neg Asthma 387966257 J45.40 using albuterolh as had a uri dong ok prior to having this recent uri Hypothyroidism 98178586 E03.9 tsh t4 stable Health Concerns Section Related Observation LastModified by Organization Detai ls LastModified Time None Recorded Concern Status LastModified by Organization Details LastModified Time None Recorded Advance Directives Directive None Recorded Payers Insurance Date Sequence Insurance Name Policy Number Policy Aguirre Covered Member ID Aguirre Member ID Guarantor Name 10/31/2024 1 [employer] [id number] Gordy Kim Sentinel [id number] Vonnie Sentinel 04/20/2020 1 [employer] [id number] Gordy Sentinel [id number] Vonnie Sentinel Notes Date Note Type Note Provider Name and Address Organization Details Recorded Time 3 text/html ROS as noted in the HPI here for issues with her sleepnot getting any good sleeprelate has been a prob for a long time but is getting very bad has been through sleep apnea testing whcih was negativealso states left hip has been very sore and getting worse over the last year William Foster DO [address] [place], [address], [facility] Internal Medicine 12/01/2022 15:53:17 4 text/html ROS as noted in the HPI here for rechk and relates that she has still been having a hard time catching her breath relates this has been ongoing since and despite albuterol use and despite pred taper cxr negnever a smokeralso noted having episode of cp William Foster DO [address] [place], [address], [facility] Internal Medicine 04/30/2023 10:36:20 4 text/html ROS as noted in the HPI relates she is doing ok overallstates that she has had a recent abdominal cramping no diarrheafor asthma she is taking generic symbicort 160relates that she has been on since april and has been helpful William Foster DO [address] [place], [address], [facility] 10/19/2023 10:06:45 5 text/html HypothyroidReported by PatientROS as noted in the HPI relates she is doing ok overallstates that she has had a recent abdominal cramping no diarrheafor asthma she is taking generic symbicort 160relates that she has been on since april and has been helpful still using the symbicort gen and trying to wean down a little 3 puffs vs 4otherwise is doing ok William Foster DO [address] [place], [address], [facility] Internal [facility] 04/21/2024 10:24:03 5 text/html Care Management - AsthmaReported by PatientHPIFor prognosis, patient reportsexpected outcome: no changeandprognosis: good. For severity, patient reportsimproving,does not interfere with daily activities,does not disturb sleep, anddoes not cause nighttime awakening. For associated symptoms, patient reportsno fever,no fatigue,no irritability,no cough,normal appetite, andno change in productivity.ROS as noted in the HPI William Foster DO [address] [place], [address], [facility] Internal [facility] 11/03/2024 10:31:20 OBGyn Episode No OBEpisode recorded.
--- OUTSIDE RECORDS SUMMARY | 2024-12-05 13:42 | XMS_ITS | Clinical Summary ---
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 Family History Medical History Relation Name Comments Breast cancer Mother 75 Breast cancer Other m. aunt Diabetes Paternal Grandfather Stroke Paternal Grandfather Other cancer Paternal Grandmother leukemi a Relation Name Status Comments Brother Alive Daughter 1 Barbara Alive Daughter 2 Berkley Alive Father Maternal Grandfather Maternal Grandmother Mother 75 Alive Other m. aunt Alive Paternal Grandfather Paternal Grandmother Son Tray Alive Social History Tobacco Use Types Packs/Day Years Used Date Smoking Tobacco: Never Smokeless Tobacco: Never Alcohol Use Standard Drinks/Week Comments No 0 (1 standard drink = 0.6 oz pur e alcohol) Comments No Sex and Gender Information Value Date Recorded Sex Assigned at Not on file Legal Sex Female 1:47 AM EST Gender Identity Not on file Sexual Orientation Not on file Obstetrics History Para Term AB IAB SAB Ectopic Multiple Livin g Live Births 3 3 3 3 Date Outcome GA Total Labor Labor/2nd/3rd Weight Sex Type Anes PTL Angela A1 A5 Name Clin Term Term Term Plan of Treatment Health Maintenance Due Date Last Done Comments Colorectal Cancer Screening: Colonoscopy 1968 Hepatitis B Vaccines (1 of 3 - 19+ 3-dose series) 08/14/1987 Pneumococcal Vaccine: 50+ Years (1 of 2 - PCV) 08/14/1987 Cervical Cancer Screening: HPV 1989 RSV Immunization Adult Patients (1 - Risk 50-74 years 1-dose series) 2018 Zoster Vaccines (1 of 2) 2018 HIV Screening 01/14/2022 Hepatitis C Screening 01/14/2022 Social Influencers of Health Screening 01/14/2022 Depression Screening 02/06/2024 Influenza Vaccine (#1) 2024 , 12/13/2021, 11/08/2021, Additional history exists Breast Cancer Screening 02/03/2026 02/04/20 24, 01/22/2023, 01/16/2022, Additional history exists DTaP,Tdap,and Td Vaccines (2 - Td or Tdap) 10/29/2029 10/30/2019 COVID-19 Vaccine Completed 11/10/2023, , 06/20/2020, Additional history exists HIB Vaccines Aged Out No longer eligi ble based on patient's age to complete this topic HPV Vaccines Aged Out No longer eligi ble based on patient's age to complete this topic Hepatitis A Vaccines Aged Out No long er eligible based on patient's age to complete this topic IPV Vaccines Aged Out No longer eligi ble based on patient's age to complete this topic MMR Vaccines Aged Out No longer eligi ble based on patient's age to complete this topic Meningococcal ACWY Vaccine Aged Out N o longer eligible based on patient's age to complete this topic Meningococcal B Vaccine Aged Out No l onger eligible based on patient's age to complete this topic RSV Immunization Patients Under 20 months Aged Out No longer eligible based on patient's age to complete this topic Varicella Vaccines Aged Out No longer eligible based on patient's age to complete this topic Procedures Procedure Name Priority Date/Time Associated Diagnosis Comments MG MAMMO DIGITAL SCREENING W SEAMUS BILAT Routine 02/04/2024 11:19 AM EST Encounter for screening mammogram for breast cancer from Last 3 Months or Most Recently Relevant to Health Maintenance Results * MG Mammo Digital Screening w Seamus bilat (02/04/2024 11:19 AM EST) Anatomical Region Laterality Modality Breast Bilateral Mammography 02/05/2024 5:15 PM EST Impressions 02/05/2024 5:15 PM EST No mammographic evidence of malignancy. BREAST DENSITY: B - There are scattered areas of fibroglandular density. BI-RADS CATEGORY: 1 - NEGATIVE RECOMMENDATION: Screening bilateral mammogram is recommended in 1 year. MAMMO LOCATION: [facility], [address] [place] [address], [address], . -------- FINAL REPORT -------- Dictated By: Alona Castro Dictated Date: 02/05/2024 17:15 ET Assigned Physician: Alona Castro Reviewed and Electronically Signed By: Alona Castro Signed Date: 02/05/2024 17:15 ET Workstation ID: [id number] Transcribed By: Self Edit Transcribed Date: 02/05/2024 17:15 ET Narrative 02/05/2024 5:15 PM EST EXAM: Screening Mammogram CLINICAL: 53 years old, Female, routine annual exam. COMPARISON: 01/22/2023 and as far back as 12/24/2019 TECHNIQUE: Bilateral MLO and CC views were obtained digitally with 3-D mammogram (digital breast tomosynthesis). Computer-aided detection was utilized in evaluation of this exam (CAD). FINDINGS: No new suspicious mass, architectural distortion, or suspicious calcifications. Procedure Note Alona Castro MD - 02/05/2024 EXAM: Screening Mammogram CLINICAL: 53 years old, Female, routine annual exam. COMPARISON: 01/22/2023 and as far back as 12/24/2019 TECHNIQUE: Bilateral MLO and CC views were obtained digitally with 3-Dmammogram (digital breast tomosynthesis). Computer-aided detection wasutilized in evaluation of this exam (CAD). FINDINGS: No new suspicious mass, architectural distortion, or suspiciouscalcifications. IMPRESSION: No mammographic evidence of malignancy. BREAST DENSITY: B - There are scattered areas of fibroglandular density. BI-RADS CATEGORY: 1 - NEGATIVE RECOMMENDATION: Screening bilateral mammogram is recommended in 1 year. MAMMO LOCATION: [facility], [address] [place] [address], [id number], . -------- FINAL REPORT -------- Dictated By: Alona Castro Dictated Date: 02/05/2024 17:15 ET Assigned Physician: Alona Castro Reviewed and Electronically Signed By: Alona Castro Signed Date: 02/05/2024 17:15 ET Workstation ID: [id number] Transcribed By: Self Edit Transcribed Date: 02/05/2024 17:15 ET William Kawn DO IMG BI PROCEDURES Final Result from Last 3 Months or Most Recently Relevant to Health Maintenance Insurance [facility] Care Teams Elementary School Music Teacher Relationship Specialty Start Date End Date William Kwan DO [address] [place] [address] [address] [place], [place] PCP - General 03/25/03
--- OUTSIDE RECORDS SUMMARY | 2024-12-05 13:42 | XMS_ITS | Encounter Summary ---
Author Organization [facility] Address [address] [place] [address] Phone Care Team Providers Care Philosophy And Religion Instructor Name Role Phone William Kwan DO Primary Care Provider [phone] Reason for Referral * MRI/CAT Scan - Closed Specialty Diagnoses / Procedures Referred By [employer] prabhakar Referred To Contact Radiology Diagnoses Hematuria, unspecified type Procedures CT Abdomen/Pelvis William Kwan DO Phone: tel: fax: [email or web address] Referral ID Status Reason Start Date Expiration Date Visits Re quested Visits Authorized [id number] Closed 10/03/2019 03/31/2020 1 1 Encounter Details Date Type Department Care Team ([facility] st Contact Info) Description 10/03/2019 Transcribe Orders Virtual Department [address] [place] [address] William Kwan DO [address] [place] [address] [email or web address] Hematuria, unspecified type (Primary Dx) Social History Tobacco Use Types Packs/Day Years [...] documented as of this encounter Results * CT ABDOMEN/PELVIS (KIDNEY STONE) WITHOUT CONTRAST (10/15/2019 9:19 AM EDT) Anatomical Region Laterality Modality Abdomen, Pelvis Computed Tomogra phy 10/15/2019 9:43 AM EDT Impressions 10/15/2019 9:[address] evidence of urolithiasis. 2.Cholelithiasis. 3.Colonic diverticulosis. Narrative 10/15/2019 9:53 AM EDT EXAM: CT ABDOMEN/PELVIS (KIDNEY STONE) WITHOUT CONTRAST CT OF ABDOMEN AND PELVIS WITHOUT INTRAVENOUS CONTRAST COMPARISON: None HISTORY: Hematuria. Outside Radiology Order TECHNIQUE: CT scan of the abdomen and pelvis was performed without intravenous contrast. Coronal and sagittal reformatted images were generated. Automated exposure control utilized. FINDINGS: Absence of intravenous contrast decreases sensitivity for detection of focal lesions and vascular pathology. FINDINGS: LOWER THORAX: No lung consolidation. No pleural effusion. HEPATOBILIARY: Unremarkable liver parenchyma. Nondistended gallbladder contains gallstones. No extra hepatic or intrahepatic ductal dilatation. SPLEEN: No splenomegaly. PANCREAS: Unremarkable. ADRENAL GLANDS: No mass. KIDNEYS AND URETERS: Bilateral kidneys are normal in unenhanced appearance. No hydronephrosis, hydroureter or nephrolithiasis. STOMACH/GI TRACT: No oral contrast was administered. Stomach is partially distended with ingested content. Bowel loops are normal in caliber. Normal appendix identified in the right lower quadrant is 5:25). Scattered diverticula along the descending and sigmoid colons. PELVIC ORGANS/BLADDER: Urinary bladder is decompressed. No intravesical stones identified. Mildly enlarged uterus. Bilateral ovaries have unremarkable appearance. PERITONEUM AND RETROPERITONEUM: No free fluid or fluid collection. No free air. LYMPH NODES: No adenopathy. VESSELS: Abdominal aorta and iliac arteries are normal in caliber. Inferior vena cava is unremarkable. BONES AND SOFT TISSUES: Soft tissues are unremarkable. No acute or suspicious osseous abnormalities. Procedure Note Ted Smith MD - 10/15/2019 EXAM: CT ABDOMEN/PELVIS (KIDNEY STONE) WITHOUT CONTRAST CT OF ABDOMEN AND PELVIS WITHOUT INTRAVENOUS CONTRAST COMPARISON: None HISTORY: Hematuria. Outside Radiology Order TECHNIQUE: CT scan of the abdomen and pelvis was performed withoutintravenous contrast. Coronal and sagittal reformatted images weregenerated. Automated exposure control utilized. FINDINGS: Absence of intravenous contrast decreases sensitivity for detection offocal lesions and vascular pathology. FINDINGS: LOWER THORAX: No lung consolidation. No pleural effusion. HEPATOBILIARY: Unremarkable liver parenchyma. Nondistended gallbladdercontains gallstones. No extra hepatic or intrahepatic ductal dilatation. SPLEEN: No splenomegaly. PANCREAS: Unremarkable. ADRENAL GLANDS: No mass. KIDNEYS AND URETERS: Bilateral kidneys are normal in unenhancedappearance. No hydronephrosis, hydroureter or nephrolithiasis. STOMACH/GI TRACT: No oral contrast was administered. Stomach ispartially distended with ingested content. Bowel loops are normal incaliber. Normal appendix identified in the right lower quadrant is 5:25).Scattered diverticula along the descending and sigmoid colons. PELVIC ORGANS/BLADDER: Urinary bladder is decompressed. No intravesicalstones identified. Mildly enlarged uterus. Bilateral ovaries haveunremarkable appearance. PERITONEUM AND RETROPERITONEUM: No free fluid or fluid collection. No freeair. LYMPH NODES: No adenopathy. VESSELS: Abdominal aorta and iliac arteries are normal in caliber.Inferior vena cava is unremarkable. BONES AND SOFT TISSUES: Soft tissues are unremarkable. No acute orsuspicious osseous abnormalities. IMPRESSION: 1.No CT evidence of urolithiasis. 2.Cholelithiasis. 3.Colonic diverticulosis. William Kwan DO G CT ABD/PELVIS Final Result documented in this encounter Visit Diagnoses Diagnosis Hematuria, unspecified type- Primary Hematuria, unspecified type documented in this encounter Care Teams Philosophy And Religion Instructor Relationship Specialty Start Date End Date William Kwan DO PCP - General Internal Medicine 05/09/17 documented as of this encounter Additional Source Comments The information contained in this document represents components of the legal health record. It is not the complete legal health record.[facility]
--- OUTSIDE RECORDS SUMMARY | 2024-12-05 13:42 | XMS_ITS | Encounter Summary ---
Author Organization [facility] Address [address] [address] Phone Care Team Providers Care Solar Sales Representative Name Role Phone William Kwan DO Primary Care Provider [phone] Encounter Details Date Type Department Care Team (Late st Contact Info) Description 01/16/2023 Ancillary Orders [facility], X-Ray - [facility] [address] [place] [address] William Kwan DO [address] [facility] [place] [address] [place] [address] [email or web address] Left hip pain (Primary Dx) Social History Tobacco Use Types Packs/Day Years Used Date Smoking Tobacco: Never Smokeless Tobacco: Never Alcohol Use Standard Drinks/Week Comments Yes 1 [...] documented as of this encounter Results * XR HIP 2 VW LEFT PLUS PELVIS (01/16/2023 12:17 PM EST) Anatomical Region Laterality Modality Hip, Pelvis Computed Radiogr aphy 01/18/2023 1:05 AM EST Impressions 01/18/2023 1:06 AM EST Gluteal enthesopathy at the iliac crests and left worse than right greater trochanters, can predispose greater trochanteric bursitis. Hip joint spaces preserved. Narrative 01/18/2023 1:06 AM EST XR HIP 2 VW LEFT PLUS PELVIS Referring clinician's provided indication for this examination in Epic: Pain COMPARISON: CT ABDOMEN/PELVIS (KIDNEY STONE) WITHOUT CONTRAST FINDINGS: PELVIS: Pelvic ring intact. No displaced fracture. Degenerative changes of the lower lumbar spine, sacroiliac joints, and pubic symphysis. Gluteal enthesopathy at the iliac crests. RIGHT HIP: Joint space preserved. Gluteal enthesopathy at the greater trochanter. LEFT HIP: Joint space preserved. Gluteal enthesopathy at the greater trochanter. Procedure Note Christina Morales MD - 01/18/2023 XR HIP 2 VW LEFT PLUS PELVIS Referring clinician's provided indication for this examination in [facility]:Pain COMPARISON: CT ABDOMEN/PELVIS (KIDNEY STONE) WITHOUT [id number] FINDINGS: PELVIS: Pelvic ring intact. No displaced fracture. Degenerative changes ofthe lower lumbar spine, sacroiliac joints, and pubic symphysis. Glutealenthesopathy at the iliac crests. RIGHT HIP: Joint space preserved. Gluteal enthesopathy at the greatertrochanter. LEFT HIP: Joint space preserved. Gluteal enthesopathy at the greatertrochanter. IMPRESSION: Gluteal enthesopathy at the iliac crests and left worse than right greatertrochanters, can predispose greater trochanteric bursitis. Hip joint spaces preserved. William Kwan DO IMG XR PELVIS Final Result documented in this encounter Visit Diagnoses Diagnosis Left hip pain- Primary Pain in joint, pelvic region and thigh Left hip pain Pain in joint, pelvic region and thigh documented in this encounter Care Teams Solar Sales Representative Relationship Specialty Start Date End Date William Kwan DO [email or web address] PCP - General Internal Medicine 05/09/17 documented as of this encounter Additional Source Comments The information contained in this document represents components of the legal health record. It is not the complete legal health record.[facility]
--- OUTSIDE RECORDS SUMMARY | 2024-12-05 13:42 | XMS_ITS | Encounter Summary ---
Author Organization [facility] Address [address] [facility] [address] [place] [address] Phone Care Team Providers Care Electronics Maintenance Technician Name Role Phone William Kwan Primary Care Provider [phone] Encounter Details Date Type Department Care Team (Late st Contact Info) Description 03/19/2023 Ancillary Orders [facility], X-Ray - [address] [address] Catherine Dobbins PA [address] [place] [address] [place] [address] Dyspnea, unspecified type (Primary Dx) Social History Tobacco [...] as of this encounter Results * XR CHEST PA AND LATERAL 2 VIEWS (03/19/2023 1:49 PM EST) Anatomical Region Laterality Modality Chest Computed Radiogr aphy 03/19/2023 3:22 PM EST Impressions 03/19/2023 3:22 PM EST No acute findings. Narrative 03/19/2023 3:22 PM EST XR CHEST PA AND LATERAL 2 VIEWS Referring clinician's provided indication for this examination in Epic: Cough COMPARISON: None FINDINGS: Lungs: Clear lungs. Pleura: No pleural effusion. No pneumothorax Heart/Mediastinum: Heart size normal. Bones/Soft Tissues: No acute finding Procedure Note Kishor Carrillo MD, JELENA - 03/19/2023 XR CHEST PA AND LATERAL 2 VIEWS Referring clinician's provided indication for this examination in Epic:Cough COMPARISON: None FINDINGS: Lungs: Clear lungs. Pleura: No pleural effusion. No pneumothorax Heart/Mediastinum: Heart size normal. Bones/Soft Tissues: No acute finding IMPRESSION: No acute findings. Catherine MELENDEZ IMG XR CHEST Final Resul t documented in this encounter Visit Diagnoses Diagnosis Dyspnea, unspecified type- Primary Dyspnea, unspecified type documented in this encounter Care Teams Electronics Maintenance Technician Relationship Specialty Start Date End Date William Kwan DO [email or web address] PCP - General Internal Medicine 05/09/17 documented as of this encounter Additional Source Comments The information contained in this document represents components of the legal health record. It is not the complete legal health record.[facility]
[2024-12-05 18:37] LABS: Alanine Aminotransferase 40 U/L (0-31); Albumin Level 4.2 g/dL (3.5-5.0); Alkaline Phosphatase 69 U/L (39-117); Anion Gap 12 (12-20); Aspartate Amino Transferase 31 U/L (5-31); Blood Urea Nitrogen 12 mg/dL (9-16); Calcium 8.9 mg/dL (8.4-10.2); Carbon Dioxide 26 mmol/L (22-29); Chloride 107 mmol/L (96-108); Estimated Glomerular Filt Rate > 60; Potassium 4.1 mmol/L (3.3-5.1); Sodium 141 mmol/L (135-145); Total Protein 6.9 g/dL (6.5-8.0)
== END 2024-12-05 12:10 | disposition home or self-care (01) ==
LOC: HO.MANLDS 12:09
PROVIDERS: Visit Provider Internal Medicine
DX: E03.9 Hypothyroidism, unspecified (principal)
CPT/HCPCS: 36415; 80053; 84443